=== PATIENT | male | born 1970 | race Caucasian/White ===

== ENCOUNTER 2022-12-19 04:08 | Emergency (ER) | payer SELFPAY ==
--- NOTE | 2022-12-19 04:10 | W.ED.CHESTPA ---
Documented by User: Lux Kaur MD 12/29/22 10:49 HPI - Chest Pain General: Chief Complaint: Chest Pain Stated Complaint: Chest pain Time Seen by Provider: 12/19/22 04:10 History of Present Illness: Mr. Harris is a 52-year-old gentleman without reported past medical history presenting to the emergency department for chest discomfort. He notes being in his baseline health over the past few days, perhaps he ate a little later than normal. He was awoken with chest pain which is substernal and radiating to the back associated with mild nausea but no other typical cardiac features approximately 2 or 3 hours ago. He reports one episode a few weeks ago that was similar however denies frequent history of chest pain. Intensity is moderate. Course has persisted. No other specific changes in health, exacerbating, or alleviating factors identified. Onset (ago): hour(s) Onset: awoke with symptoms Pain location: substernal Pain radiation: back Severity: moderate Relieving factors: nothing Exacerbating factors: nothing Associated symptoms: Reports no associated symptoms Course Vital Signs: Vital signs: Vital Signs Temperature 98.8 F 12/19/22 04:15 Pulse Rate 46 L 12/19/22 04:15 Respiratory Rate 16 12/19/22 04:15 Blood Pressure 144/84 12/19/22 04:15 Pulse Oximetry 98 12/19/22 04:15 Oxygen Delivery Me thod Room Air 12/19/22 04:15 MDM - Chest Pain Medical Decision Making 52-year-old gentleman presenting with chest pain. Exam as above. EKG with no STEMI. Handed off to Dr. Spring pending completion of ED evaluation. Patient presents to the ER with sudden onset chest pain that radiated to his back. Patient denies any previous cardiac history consumption of spicy unusual foods. Patient states he had this pain once before about a week ago. Physical exam was performed normal cardiac work-up was obtained which essentially has been negative except for potassium of 2.9, magnesium 1.5, EKGs did not show any ST segment changes, chest x-ray was negative. Patient was given potassium magnesium replacement as well as Toradol for pain. Patient was sleeping soundly upon reexam these labs were explained to the patient. Patient declined further inpatient observation for repeated lab work and EKGs. Patient be discharged home with atypical chest pain told to follow-up with PCP within next 1 week. Lab Data 12/19/22 04:17 12/19/22 04:57 Radiology Impressions Chest X-Ray 12/19/22 04:17 IMPRESSION: No acute findings. Laboratory Results WBC 6.5 10^3/uL (4.0-10.0) 12/19/22 04:17 RBC 5.51 10^6/uL (4.1-5.3) H 12/19/22 04:17 Hgb 15.3 g/dL (11.7-16.6) 12/19/22 04:17 Hct 48.6 % (42.0-52.0) 12/19/22 04:17 MCV 88.2 fl (80-94) 12/19/22 04:17 MCH 27.8 pg (28.0-34.0) L 12/19/22 04:17 MCHC 31.5 g/dL (30.0-36.0) 12/19/22 04:17 RDW 12.1 % (12.1-15.1) 12/19/22 04:17 Plt Count 229 10^3/cmm (130-400) 12/19/22 04:17 MPV 9.0 fL (7.4-10.4) 12/19/22 04:17 Neut % (Auto) 57.9 % 12/19/22 04:17 Lymph % (Auto) 27.5 % 12/19/22 04:17 [place] % (Auto) 10.2 % 12/19/22 04:17 Eos % (Auto) 3.4 % 12/19/22 04:17 Baso % (Auto) 0.8 % 12/19/22 04:17 Neut # (Auto) 3.77 10^3/uL (1.8-7.7) 12/19/22 04:17 Lymph # (Auto) 1.8 10^3/uL (0.8-4.8) 12/19/22 04:17 [place] # (Auto) 0.7 10^3/uL (0.2-0.9) 12/19/22 04:17 Eos # (Auto) 0.2 10^3/uL (0.0-0.8) 12/19/22 04:17 Baso # (Auto) 0.1 10^3/uL (0.0-0.1) 12/19/22 04:17 Nucleated RBC % (auto) 0 % 12/19/22 04:17 Nucleated RBCs # 0.0 /100WBC 12/19/22 04:17 Sodium 142 mmol/L (136-145) 12/19/22 04:57 Potassium 2.9 mmol/L (3.5-5.1) L 12/19/22 04:57 Chloride 112 mmol/L (98-107) H 12/19/22 04:57 Carbon Dioxide 22 mmol/L (22-29) 12/19/22 04:57 Anion Gap 10.9 (5-19) 12/19/22 04:57 BUN 15 mg/dL (6-20) 12/19/22 04:57 Creatinine 0.7 mg/dL (0.7-1.2) 12/19/22 04:57 GFR Calculation 118.4 mL/min (90-130) 12/19/22 04:57 Glucose 85 mg/dL (65-115) 12/19/22 04:57 Calculated Osmolality 294 mOsm/kg (285-295) 12/19/22 04:57 Calcium 6.5 mg/dL (8.5-10.5) L 12/19/22 04:57 Magnesium 1.5 mg/dL (1.7-2.3) L 12/19/22 04:57 Total Bilirubin 0.2 mg/dL (0.15-1.2) 12/19/22 04:57 AST 11 U/L (0-40) 12/19/22 04:57 ALT 9 U/L (0-41) 12/19/22 04:57 Alkaline Phosphatase 38 U/L (40-130) L 12/19/22 04:57 Troponin T Baseline 6 ng/L (0-15) 12/19/22 04:17 Troponin T 120 Minute 6.00 ng/L (0-15) 12/19/22 06:28 Delta Troponin T 0 ABS# (0-10) 12/19/22 06:28 NT-Pro-B Natriuret Pep 36 pg/mL (0-125) 12/19/22 04:57 Total Protein 4.8 g/dL (6.6-8.7) L 12/19/22 04:57 Albumin 3.1 g/dL (3.5-5.2) L 12/19/22 04:57 Globulin 1.7 g/dL (1.3-4.6) 12/19/22 04:57 Lipase 27 U/L (13-60) 12/19/22 04:57 Discharge Plan Discharge Patient Disposition: Home Clinical Impression: Atypical chest pain, Acute hypokalemia, Hypomagnesemia Condition: Stable Discharge Orders: Discharge ED (Routine); Ordered 12/19/22 Ordered By: Brant Spring Patient Instructions: Chest Pain - Noncardiac, Hypokalemia (ED), Hypomagnesemia (ED) Activity Restrictions/Additional Instructions: Please follow-up with your primary care practitioner within next 1 to 2 weeks as needed. Please return to the ER if your chest pain comes back worsens or changes. Coding Level of Care Code ED Linux Systems Analyst for [employer] Documented by User: Brant Spring DO 12/19/22 07:21 HPI - Chest Pain General: Chief Complaint: Chest Pain Stated Complaint: Chest pain Time Seen by Provider: 12/19/22 04:10 Review of Systems General: Reports: 10 or more systems reviewed and unremarkable except in HPI and below Physical Exam Const: COMMON NORMALS: no acute distress, average body habitus, patient oriented x3, no limitations, healthy appearing, alert and well nourished HENMT: COMMON NORMALS: normocephalic, atraumatic, hearing grossly normal bilaterally, external ears normal, Normal external nose present and moist oral mucous membranes HEAD & SCALP: normocephalic and atraumatic NOSE: Normal external nose present EXTERNAL EAR: Yes external ears normal Eye: COMMON NORMALS: Equal, round and reactive pupils present, EOMs intact bilaterally, conjunctivae normal and no scleral icterus CONJUNCTIVA: Yes conjunctivae normal PUPIL: Yes Equal, round and reactive pupils present Neck/C-Spine: COMMON NORMALS: full ROM, no lymphadenopathy, supple, no meningeal signs, no JVD and Thyroid normal THYROID: Thyroid normal Chest: COMMONS NORMALS: normal inspection of the chest and normal palpation of entire chest wall Resp: COMMON NORMALS: normal respiratory effort, No retractions, No use of accessory muscles and clear to auscultation bilaterally AUSCULTATION: clear to auscultation bilaterally Cardio: COMMON NORMALS: no JVD, regular rate, regular rhythm, S1 normal heart sound present, S2 normal heart sound present, No gallops present (Cardio), No clicks present (Cardio) and No murmurs present (Cardio) RATE: regular rate RHYTHM: regular rhythm HEART SOUNDS: S1 normal heart sound present and S2 normal heart sound present GI: COMMON NORMALS: Normal to inspection, nondistended, normoactive bowel sounds present, Soft to palpation, non-tender, No hepatosplenomegaly present and no masses PALPATION: Yes Soft to palpation and Yes No hepatosplenomegaly present Neuro: COMMON NORMALS: patient oriented x3 SENSORIUM/ORIENTATION: Yes alert MENINGEAL SIGNS: Yes no meningeal signs Course Vital Signs: Vital signs: Vital Signs Temperature 98.8 F 12/19/22 04:15 Pulse Rate 46 L 12/19/22 04:15 Respiratory Rate 16 12/19/22 04:15 Blood Pressure 144/84 12/19/22 04:15 Pulse Oximetry 98 12/19/22 04:15 Oxygen Delivery Me thod Room Air 12/19/22 04:15 MDM - Chest Pain Medical Decision Making Patient presents to the ER with sudden onset chest pain that radiated to his back. Patient denies any previous cardiac history consumption of spicy unusual foods. Patient states he had this pain once before about a week ago. Physical exam was performed normal cardiac work-up was obtained which essentially has been negative except for potassium of 2.9, magnesium 1.5, EKGs did not show any ST segment changes, chest x-ray was negative. Patient was given potassium magnesium replacement as well as Toradol for pain. Patient was sleeping soundly upon reexam these labs were explained to the patient. Patient declined further inpatient observation for repeated lab work and EKGs. Patient be discharged home with atypical chest pain told to follow-up with PCP within next 1 week. Differential Diagnosis Unlikely acute massive pulmonary embolism, acute respiratory failure, acute myocardial infarction, cardiac arrest or sudden cardiac Medical Records I reviewed the patient's medical records. Lab Data I reviewed the patient's lab results. 12/19/22 04:17 05/30/23 04:57 Radiology Impressions Chest X-Ray 12/19/22 04:17 IMPRESSION: No acute findings. Laboratory Results WBC 6.5 10^3/uL (4.0-10.0) 12/19/22 04:17 RBC 5.51 10^6/uL (4.1-5.3) H 12/19/22 04:17 Hgb 15.3 g/dL (11.7-16.6) 12/19/22 04:17 Hct 48.6 % (42.0-52.0) 12/19/22 04:17 MCV 88.2 fl (80-94) 12/19/22 04:17 MCH 27.8 pg (28.0-34.0) L 12/19/22 04:17 MCHC 31.5 g/dL (30.0-36.0) 12/19/22 04:17 RDW 12.1 % (12.1-15.1) 12/19/22 04:17 Plt Count 229 10^3/cmm (130-400) 12/19/22 04:17 MPV 9.0 fL (7.4-10.4) 12/19/22 04:17 Neut % (Auto) 57.9 % 12/19/22 04:17 Lymph % (Auto) 27.5 % 12/19/22 04:17 [place] % (Auto) 10.2 % 12/19/22 04:17 Eos % (Auto) 3.4 % 12/19/22 04:17 Baso % (Auto) 0.8 % 12/19/22 04:17 Neut # (Auto) 3.77 10^3/uL (1.8-7.7) 12/19/22 04:17 Lymph # (Auto) 1.8 10^3/uL (0.8-4.8) 12/19/22 04:17 [place] # (Auto) 0.7 10^3/uL (0.2-0.9) 12/19/22 04:17 Eos # (Auto) 0.2 10^3/uL (0.0-0.8) 12/19/22 04:17 Baso # (Auto) 0.1 10^3/uL (0.0-0.1) 12/19/22 04:17 Nucleated RBC % (auto) 0 % 12/19/22 04:17 Nucleated RBCs # 0.0 /100WBC 12/19/22 04:17 Sodium 142 mmol/L (136-145) 12/19/22 04:57 Potassium 2.9 mmol/L (3.5-5.1) L 12/19/22 04:57 Chloride 112 mmol/L (98-107) H 12/19/22 04:57 Carbon Dioxide 22 mmol/L (22-29) 12/19/22 04:57 Anion Gap 10.9 (5-19) 12/19/22 04:57 BUN 15 mg/dL (6-20) 12/19/22 04:57 Creatinine 0.7 mg/dL (0.7-1.2) 12/19/22 04:57 GFR Calculation 118.4 mL/min (90-130) 12/19/22 04:57 Glucose 85 mg/dL (65-115) 12/19/22 04:57 Calculated Osmolality 294 mOsm/kg (285-295) 12/19/22 04:57 Calcium 6.5 mg/dL (8.5-10.5) L 12/19/22 04:57 Magnesium 1.5 mg/dL (1.7-2.3) L 12/19/22 04:57 Total Bilirubin 0.2 mg/dL (0.15-1.2) 12/19/22 04:57 AST 11 U/L (0-40) 12/19/22 04:57 ALT 9 U/L (0-41) 12/19/22 04:57 Alkaline Phosphatase 38 U/L (40-130) L 12/19/22 04:57 Troponin T Baseline 6 ng/L (0-15) 12/19/22 04:17 Troponin T 120 Minute 6.00 ng/L (0-15) 12/19/22 06:28 Delta Troponin T 0 ABS# (0-10) 12/19/22 06:28 NT-Pro-B Natriuret Pep 36 pg/mL (0-125) 12/19/22 04:57 Total Protein 4.8 g/dL (6.6-8.7) L 12/19/22 04:57 Albumin 3.1 g/dL (3.5-5.2) L 12/19/22 04:57 Globulin 1.7 g/dL (1.3-4.6) 12/19/22 04:57 Lipase 27 U/L (13-60) 12/19/22 04:57 Discharge Plan Discharge Patient Disposition: Home Clinical Impression: Atypical chest pain, Acute hypokalemia, Hypomagnesemia Condition: Stable Discharge Orders: Discharge ED (Routine); Ordered 12/19/22 Ordered By: Brant Spring Patient Instructions: Chest Pain - Noncardiac, Hypokalemia (ED), Hypomagnesemia (ED) Activity Restrictions/Additional Instructions: Please follow-up with your primary care practitioner within next 1 to 2 weeks as needed. Please return to the ER if your chest pain comes back worsens or changes. Coding Level of Care Code ED Linux Systems Analyst for Dariusz Chavez
[2022-12-19 04:13] VITALS: BMI 31.1
--- NOTE | 2022-12-19 04:14 | ECG_ITS ---
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 Measurements Intervals [place] Rate: 46 P: 60 WI: 177 QRS: 45 QRSD: 98 T: 33 QT: 440 QTc: 387 Interpretive Statements SINUS BRADYCARDIA No previous ECG available for comparison Electronically Signed On 12-19-2022 8:24:14 CDT by Brooklynn Barillas M.D. [id number]
--- NOTE | 2022-12-19 04:14 | ECG_ITS ---
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 Measurements Intervals [place] Rate: 46 P: 60 MN: 177 QRS: 45 QRSD: 98 T: 33 QT: 440 QTc: 387 Interpretive Statements SINUS BRADYCARDIA No previous ECG available for comparison Electronically Signed On 12-19-2022 8:19:49 CDT by Brooklynn Barillas M.D. [id number]
[2022-12-19 04:15] VITALS: BP 144/84; PULSE 46; RESP 16; TEMP 37.1; O2SAT 98
--- NOTE | 2022-12-19 04:17 | XRR_ITS ---
PROCEDURE INFORMATION: Exam: XR Chest Exam date and time: 12/19/2022 3:31 AM Age: 52 years old Clinical indication: Pain; Chest pressure; Additional info: Cp TECHNIQUE: Imaging protocol: Radiologic exam of the chest. Views: 1 view. COMPARISON: No relevant prior studies available. FINDINGS: Lungs: Unremarkable. No consolidation. Pleural spaces: Unremarkable. No pleural effusion. No pneumothorax. Heart/Mediastinum: Unremarkable. No cardiomegaly. Bones/joints: Unremarkable. XR/XR chest 1V portable [id number] IMPRESSION: No acute findings.
[2022-12-19 04:27] LABS: Basophils # 0.1 10^3/uL (0.0-0.1); Basophils % 0.8 %; Eosinophils # 0.2 10^3/uL (0.0-0.8); Eosinophils % 3.4 %; Hematocrit 48.6 % (42.0-52.0); Hemoglobin 15.3 g/dL (11.7-16.6); Lymphocytes # 1.8 10^3/uL (0.8-4.8); Lymphocytes % 27.5 %; Mean Corpuscular HGB Conc 31.5 g/dL (30.0-36.0); Mean Corpuscular Hemoglobin 27.8 pg (28.0-34.0); Mean Corpuscular Volume 88.2 fl (80-94); Monocytes # 0.7 10^3/uL (0.2-0.9); Monocytes % 10.2 %; Neutrophils # 3.77 10^3/uL (1.8-7.7); Neutrophils % 57.9 %; Nucleated Red Blood Cells % 0 %; Platelet Count 229 10^3/cmm (130-400); Red Blood Count 5.51 10^6/uL (4.1-5.3); Red Cell Distribution Width 12.1 % (12.1-15.1); White Blood Count 6.5 10^3/uL (4.0-10.0)
[2022-12-19] MEDS: aspirin 81 mg Chew Tablet 324 MG PO (04:38)
[2022-12-19] MEDS: lidocaine 2% viscous 15 ML, aluminum-mag hydrox-simethicon 30 ML, sucralfate oral liq 1 GM PO (04:40)
[2022-12-19 04:52] LABS: Troponin(5th) Baseline 6 ng/L (0-15)
[2022-12-19 05:09] LABS: NT Pro B Type Natriuretic Pept 36 pg/mL (0-125)
[2022-12-19 05:33] LABS: Alanine Aminotransferase 9 U/L (0-41); Alkaline Phosphatase 38 U/L (40-130); Aspartate Amino Transferase 11 U/L (0-40); Glomerular Filtration Rate 118.4 mL/min (90-130)
[2022-12-19 05:34] LABS: Albumin Level 3.1 g/dL (3.5-5.2); Anion Gap 10.9 (5-19); Blood Urea Nitrogen 15 mg/dL (6-20); Calcium 6.5 mg/dL (8.5-10.5); Carbon Dioxide 22 mmol/L (22-29); Chloride 112 mmol/L (98-107); Globulin 1.7 g/dL (1.3-4.6); Glucose 85 mg/dL (65-115); Lipase 27 U/L (13-60); Osmolality Calculated 294 mOsm/kg (285-295); Sodium 142 mmol/L (136-145); Total Bilirubin 0.2 mg/dL (0.15-1.2); Total Protein 4.8 g/dL (6.6-8.7)
[2022-12-19 05:35] LABS: Potassium 2.9 mmol/L (3.5-5.1)
[2022-12-19 05:49] LABS: Magnesium 1.5 mg/dL (1.7-2.3)
[2022-12-19] MEDS: potassium chloride ER 20 mEq Tablet 60 MEQ PO (05:55)
[2022-12-19] MEDS: ketorolac 30 mg/mL INJ 15 MG IVP (06:10)
[2022-12-19 07:02] LABS: Troponin 5 2HR Delta 0 ABS# (0-10)
--- NOTE | 2022-12-25 15:30 | DCPLANNER ---
Addendum entered by Zena Sharpe 01/26/23 10:38: Patient did not attend appointment. Original Note: manager operational called patient due to no primary care physician - case monitor scheduled an appointment for patient at [facility] for December at 10:[address] Peña. manager operational called patient with appointment information.
== END 2022-12-19 07:29 | disposition home or self-care (01) ==
PROVIDERS: Emergency Provider Emergency Medicine
DX: R07.89 Other chest pain (principal); E87.6 Hypokalemia; E83.42 Hypomagnesemia
CPT/HCPCS: 71045; 80053; 83690; 83735; 83880; 84484; 85025; 93005; 96374; 96375; 99285; J1885; J3475